=== PATIENT | female | born 1995 | race Two or more races ===

== ENCOUNTER 2024-02-12 18:17 | Emergency (ER) | payer OTHER ==
[~2024-02-12] VITALS: Ht 154.9 cm; Wt 89.8 kg
[2024-02-12] MEDS ORDERED: PRENA1 CHEW TA1.4 MG (18:30)
[2024-02-12] MEDS ORDERED: METOCLOPRAMIDE HCL 5 MG/ML VIAL IM STA (19:48)
[2024-02-12] MEDS ORDERED: DEXAMETHASONE SODIUM PHOSPHATE 4 MG/ML VIAL IM STA (19:49)
== END 2024-02-12 20:12 | disposition home or self-care (01) ==
LOC: ER 18:17
DX: O26.892 Other specified pregnancy related conditions, second trimester (principal); Z3A.15 15 weeks gestation of pregnancy; G43.809 Other migraine, not intractable, without status migrainosus; Z88.8 Allergy status to other drugs, medicaments and biological substances; R42 Dizziness and giddiness

== ENCOUNTER 2024-07-23 13:15 | Inpatient (IN) | payer OTHER ==
[~2024-07-23] VITALS: Ht 180.3 cm; Wt 95.3 kg
[~2024-07-23 13:15] MED LIST: PRENA1 CHEW TA1.4 MG
[2024-07-26] VITALS (9 sets, daily range): BP systolic 114–138; BP diastolic 54–82
[2024-07-26] MEDS ORDERED: OXYTOCIN 500 ML IV SCH (10:00)
[2024-07-26] MEDS ORDERED: CHLORHEXIDINE GLUCONATE 120 ML BOTTLE TOP ONE ×2 (10:33→15:00)
[2024-07-26] MEDS ORDERED: LIDOCAINE HCL 1% 10ML VIAL ONE (10:33)
[2024-07-26] MEDS ORDERED: OXYTOCIN 20 UNITS/1000ML RL PIGGYBAG IV ONE (10:33)
[2024-07-26] MEDS ORDERED: ERYTHROMYCIN BASE OPHT 1GM EACH TUBE OP ONE ×2 (10:33→15:00)
[2024-07-26] MEDS ORDERED: MEPERIDINE HCL/PF 50 MG/ML VIAL IV ONE (11:30)
[2024-07-26] MEDS ORDERED: PROMETHAZINE HCL 25 MG/ML AMPUL IV ONE (11:30)
[2024-07-26] MEDS ORDERED: OXYTOCIN 1,000 ML IV SCH (15:00)
[2024-07-26] MEDS ORDERED: ACETAMINOPHEN 500 MG GEL..CAP PO PRN (23:45)
[2024-07-27 01:00] VITALS: BP 120/79
[2024-07-27 08:30] VITALS: BP 122/75
[2024-07-27 17:38] VITALS: BP 101/63
[2024-07-28] VITALS: BP 123/82
[2024-07-28 08:00] VITALS: BP 113/72
[2024-07-28 16:00] VITALS: BP 125/82
== END 2024-07-28 18:06 | disposition home or self-care (01) | DRG 807 ==
LOC: OB/GYN 07-26 09:34 → LDR 07-26 09:34 → OB/GYN 07-26 14:19 → LDR 08-03 13:15
PROVIDERS: ADMIT Specialist; ATTEND Specialist
PROC: 10E0XZZ Delivery of Products of Conception, External Approach (ICD-10-PCS; principal; 2024-07-26)
PROC: 4A1HXCZ Monitoring of Products of Conception, Cardiac Rate, External Approach (ICD-10-PCS; 2024-07-26)
DX: O80 Encounter for full-term uncomplicated delivery (principal); Z37.0 Single live birth; Z3A.38 38 weeks gestation of pregnancy; Z20.822 Contact with and (suspected) exposure to COVID-19

== ENCOUNTER 2024-07-26 02:04 | Outpatient (CLI) | payer OTHER ==
[2024-07-26 00:50] VITALS: BP 138/68
[2024-07-26] MEDS ORDERED: RINGERS SOLUTION,LACTATED 1,000 ML IV SCH (02:45)
[2024-07-26 03:29] LABS: PH,URINE 6.5 (5.0-8.0); URINE APPEARANCE Clear; URINE BILIRRUBIN Negative (NEGATIVE); URINE BLOOD NHT; URINE COLOR Yellow; URINE GLUCOSE Negative (NEGATIVE); URINE KETONE Negative (NEGATIVE); URINE LEUKOCYTE Moderate; URINE NITRATE Negative; URINE PROTEIN Negative (NEGATIVE); URINE UROBILINOGEN 0.2 E.U./dl
[2024-07-26 03:33] LABS: URINE BACTERIA 3388.8 uL (0.0-1933); URINE EPITHELIAL CELLS 37.8 uL (0.0-38.8); URINE WBC 31.6 uL (0.0-23.2)
[2024-07-26 03:39] LABS: HEMATOCRIT 29.5 % (36.0-45.00); HEMOGLOBIN 9.9 g/dL (12.0-15.00); MEAN CELL VOLUME 78.5 fL (80.00-100.00); MEAN CORPUSCULAR HEMOGLOBIN 26.3 pg (27.00-32.0); MEAN CORPUSCULAR HGB CONC 33.5 g/dl (32.0-36.0); PLATELET COUNT 372 K/uL (150-450); RED BLOOD COUNT 3.76 M/uL (4.00-6.00)
[2024-07-26 03:40] LABS: URINE RBC 1.6 uL (0.0-20.8)
[2024-07-26 03:48] LABS: PARTIAL THROMBOPLASTIN TIME 27.5 SECONDS (22.0-34.0); PROTHROMBIN TIME 10.9 SECONDS (9.0-11.5)
[2024-07-26 03:53] LABS: ALBUMIN 2.7 gm/dL (3.4-5.0); BILIRUBIN TOTAL 0.4 mg/dL (0.3-1.2); CALCIUM 9.1 mg/dL (8.5-10.1); CREATININE SERUM 0.55 mg/dL (0.55-1.02); GFR 131.61; GLOBULINA 3.7 G/DL (2.4-3.5); POTASSIUM 3.99 mEq/L (3.5-5.1); TOTAL PROTEIN 6.4 gm/dL (6.4-8.2)
[2024-07-26 07:53] VITALS: BP 129/54
== END 2024-07-26 09:32 | disposition still patient (30) ==
LOC: OBS/DEL 02:04
PROVIDERS: Obstetrics & Gynecology; ATTEND Specialist
DX: O26.893 Other specified pregnancy related conditions, third trimester (principal); Z3A.38 38 weeks gestation of pregnancy